=== PATIENT | female | born 1985 | race Caucasian/White ===

== ENCOUNTER 2019-02-27 18:15 | Emergency (ER) | payer MEDICAID ==
[~2019-02-27] VITALS: Ht 165.1 cm; Wt 69.5 kg
[~2019-02-27 18:15] MED LIST: PREN1TAB49 PO
[2019-02-27 18:21] VITALS: Ht 165.1 cm; Wt 69.5 kg
[2019-02-27] MEDS ORDERED: ACETAMINOPHEN 325 MG TAB PO STA (19:33)
--- NOTE | 2019-02-27 19:35 | ERD ---
ER Documentation Chief Complaint Chief Complaint AP X'S 2 DAYS, 12 WEEKS HPI 33-year-old female, G3, P2 at approximately 14 weeks , presents to the emergency department, complaining of suprapubic discomfort for 2 days. The patient denies vaginal bleeding, no fever or chills, no diarrhea or constipation. She reports increased urinary frequency and mild dysuria. ROS All systems reviewed and are negative except as per history of present illness. Medications Home Meds Active Scripts Acetaminophen* (Tylenol*) 325 Mg Tablet, 2 TAB PO Q6 PRN for PAIN AND OR E LEVATED TEMP, #20 TAB Prov:GUZMAN HOBSON MD 02/27/19 Reported Medications Vits W-Ca,Fe,Fa(<1MG) () 1 Tab Tablet, PO DAILY 06/11/11 Allergies Allergies: Coded Allergies: No Known Allergies (Verified Allergy, 06/11/11) PMhx/Soc Medical and Surgical Hx: pt denies Medical Hx History of Surgery: Yes (CSECTION X 2) Anesthesia Reaction: No Hx Neurological Disorder: No Hx Respiratory Disorders: No Hx Cardiac Disorders: No Hx Psychiatric Problems: No Hx Miscellaneous Medical Probl: No Hx Alcohol Use: No Hx Substance Use: No Hx Tobacco Use: No Smoking Status: Never smoker FmHx Family History: No diabetes, No coronary disease Physical Exam Vitals Vital Signs Date Temp Pulse Resp B/P (MAP) Pulse Ox O2 O2 Flow FiO2 Time Delivery Rate 02/27/19 97.6 78 18 116/79 98 Room Air 21:39 (91) 02/27/19 37.3 19:53 02/27/19 99.2 108 18 130/78 98 18:21 (95) Physical Exam Const: No acute distress Head: Atraumatic Eyes: Normal Conjunctiva ENT: Normal External Ears, Nose and Mouth. Neck: Full range of motion. No meningismus. Resp: Clear to auscultation bilaterally Cardio: Regular rate and rhythm, no murmurs Abd: Soft, non tender, uterus enlarged, non distended. Normal bowel sounds Skin: No petechiae or rashes Back: No midline or flank tenderness Ext: No cyanosis, or edema Neur: Awake and alert Psych: Normal Mood and Affect Result Diagram: 02/27/19194402/27/191944 Results 24 hrs Laboratory Tests Test 02/27/19 19:45 02/27/19 19:47 02/27/19 20:06 White Blood Count 9.9 10^3/ul Red Blood Count 3.99 10^6/ul Hemoglobin 12.1 g/dl Hematocrit 36.1 % Mean Corpuscular Volume 90.5 fl Mean Corpuscular Hemoglobin 30.3 pg Mean Corpuscular Hemoglobin Concent 33.5 g/dl Red Cell Distribution Width 12.7 % Platelet Count 201 10^3/UL Mean Platelet Volume 10.4 fl Immature Granulocytes % 0.500 % Neutrophils % 73.4 % Lymphocytes % 16.0 % Monocytes % 6.8 % Eosinophils % 2.9 % Basophils % 0.4 % Nucleated Red Blood Cells % 0.0 /100WBC Immature Granulocytes # 0.050 10^3/ul Neutrophils # 7.3 10^3/ul Lymphocytes # 1.6 10^3/ul Monocytes # 0.7 10^3/ul Eosinophils # 0.3 10^3/ul Basophils # 0.0 10^3/ul Nucleated Red Blood Cells # 0.0 10^3/ul Sodium Level 138 mmol/L Potassium Level 3.9 mmol/L Chloride Level 109 mmol/L Carbon Dioxide Level 22 mmol/L Anion Gap 7 Blood Urea Nitrogen 7 mg/dl Creatinine 0.50 mg/dl Est Glomerular Filtrat Rate mL/min > 60 mL/min Glucose Level 93 mg/dl Calcium Level 9.6 mg/dl Bedside Urine pH (LAB) 6.0 Bedside Urine Protein (LAB) Negative Bedside Urine Glucose (UA) Negative Bedside Urine Ketones (LAB) Negative Bedside Urine Blood Negative Bedside Urine Nitrite (LAB) Negative Bedside Urine Leukocyte Esterase (L Negative POC Beta HCG, Qualitative POSITIVE Current Medications Medications Dose Sig/Nancie Start Time Status Last (Trade) Ordered Route PRN Stop Time Admin Dose Reason Admin 650 mg ONCE STAT 02/27/19 DC 02/27/19 Acetaminophen PO 19:33 02/27/19 19:53 (Tylenol 19:43 Tab) Patient: EBEN BEST : 1985 Age: 33 Sex: F MR #: [id number] DOS: 02/27/19 193 Ordering MD: GUZMAN HOBSON MD Location: FT Room/Bed: PROCEDURE: US OB. CLINICAL INDICATION: Vaginal bleeding, abdominal pain TECHNIQUE: Transabdominal obstetrical sonographic evaluation was performed. COMPARISON: No prior studies are available for comparison. FINDINGS: There is a single living intrauterine gestation with posterior placenta. No evidence of placental abruption. There is a moderate amount of amniotic fluid. The amniotic fluid maximal vertical pocket measures 4.3 cm. heart rate of 163 beats per minute was detected during this examination. BPD = 3.2 cm, 15 weeks and 6 days HC = 11.5 cm, 15 weeks and 4 days AC = 9.9 cm, 16 weeks and 0 day FL = 1.7 cm, 15 weeks and 1 day Based on four parameters of biparietal diameter, head circumference, abdominal circumference and femoral head, estimated gestational age only based on this study is 15 weeks and 5 days +/- 1 week and 1 day. Estimated date of confinement based on this examination is 08/16/2019. Estimated weight is 128 +/- 19 grams, at 23rd percentile based on this examination. Cephalic index is 80%, within normal limits. IMPRESSION: 1. Single living intrauterine gestation with estimated gestational age of 15 weeks and 5 days +/- 1 week and 1 day, as detailed above. Procedures/MDM Vital signs stable. Differential diagnosis include but not limited to: Appe ndicitis, UTI, colitis, gastroenteritis, kidney stones, irritable bowel syndrome, inflammatory bowel syndrome, malabsorption syndrome, cholelithiasis, food intolerance, medication side effect, pancreatitis, diverticulitis, bowel obstruction. Physical examination and clinical presentation consistent most likely with pelvic pain in a 15 weeks patient without evidence of acute abdomen, low suspicion for abruption. Labs requested and reviewed: CBC: no evidence of anemia or leukocytosis, platelets normal. CMP: Normal electrolytes, normal kidney function, no evidence of diabetes or metabolic acidosis. Urine: No evidence of infection. During the ED course the patient remained stable, no new complaints. Results and clinical impression discussed with the patient who agrees with management. The patient is stable to be treated outpatient and will be discharged home; some side effects of prescribed medications (headache, rash, nausea, vomiting, diarrhea, drowsiness, habituation, bleeding, hypertension, interactions with other medications) were reviewed. The patient was informed that the evaluation in the emergency department has been done to rule out an acute emergency, therefore, chronic conditions like malignancy or other diseases have not been evaluated; therefore, the patient was instructed to follow up with the primary care provider in the next 48h. If symptoms persist, worsen or new symptoms develop, then patient should return to the ED immediately. Instructions explained and given directly by me to the patient with acknowledgment and demonstrated understanding. Disclaimer: Inadvertent spelling and grammatical errors are likely due to EHR/dictation software use and do not reflect on the overall quality of patient care. Also, please note that the electronic time recorded on this note does not necessarily reflect the actual time of the patient encounter. Departure Diagnosis: Primary Impression: Pelvic pain Additional Impression: with 15 completed weeks gestation Condition: Stable Additional Instructions: Muchas monroe por [facility] para grimaldo servicio. Esperamos que en grimaldo visita a la aamir de emergencia grimaldo problema medico haya sido solucionado y que se sienta mucho mejor. Para estar seguros que grimaldo mejoria sigue en proceso, le pedimos el favor de hacer vani joselo de seguimiento medico con grimaldo doctor primario en los proximos 2-4 magdaleno. Lleve con usted estos documentos y las medicinas recetadas. Si brent sintomas empeoran, NO SE ESPERE, por favor regrese a aamir de emergencia INMEDIATAMENTE. En gabriel que usted no tenga un mdico de atencin primaria: Llame al mdico o clnica comunitaria de referencia que aparece abajo madison las horas de consultorio para hacer vani joselo para que le vean. CLINICAS: [facility] [id number] [facility] [phone] [facility] [phone] [facility] [phone] [facility] [phone] [id number] [facility]. [phone] [id number] CYDNEY TOBARGUZMAN MD Feb 27, 2019 19:35
[2019-02-27] MEDS ORDERED: ACET325T33 PO (20:49)
[2019-02-27 21:39] VITALS: BP 116/79; PULSE 78; RESP 18
== END 2019-02-27 21:41 | disposition home or self-care (01) ==
LOC: FTE 18:15
DX: O26.892 Other specified pregnancy related conditions, second trimester (principal); R10.2 Pelvic and perineal pain; Z3A.15 15 weeks gestation of pregnancy
CPT/HCPCS: 36415; 76801; 80048; 81003; 81025; 85025; Z7502; Z7610